=== PATIENT | male | born 1950 | race Hispanic/Latino ===

== ENCOUNTER 2019-12-24 13:41 | Emergency (ER) | payer OTHER, SELFPAY ==
[2019-12-24 13:43] VITALS: BP 149/84; PULSE 75; RESP 20; TEMP 37; O2SAT 99
[2019-12-24 14:03] LABS: Glucose Point of Care 163 (65-105)
--- NOTE | 2019-12-24 14:05 | PC.NURSE ---
blood sugar 163
--- NOTE | 2019-12-24 14:22 | ED.URI ---
HPI - URI/Sore Throat General Chief Complaint: Upper Respiratory Infection Stated Complaint: sore throat History of Present Illness HPI Narrative: Patient states that last week he had chills that he relates to taking a new medication so he stopped his diabetes medication. Patient state that heas not felt well in the past week three days ago he started to have a sore throat. Patient states he had chills and sweating but no fever, nausea , vomiting and or diarrhea over the past week but sore throat remains at this time. Related Data Home Medications Medication Instructions Recorded Confirmed aspirin 81 mg tablet,delayed 81 mg PO DAILY 08/11/19 12/11/19 release coenzyme Q10 300 mg capsule 300 mg PO DAILY 08/11/19 12/11/19 docosahexaenoic acid (dha)-epa 120 1 cap PO DAILY 08/11/19 12/11/19 mg-180 mg capsule lisinopril 10 mg tablet 10 mg PO DAILY 12/31/19 metformin 850 mg tablet 850 mg PO DAILY 12/31/19 Allergies Allergy/AdvReac Type Severity Reaction Status Date / Time No Known Allergies Allergy Verified 12/31/19 08:57 Review of Systems Review of Systems: Narrative: CONSTITUTIONAL: Denies fever, chills, or sweats. EYES: Denies visual changes, redness, or discharge. ENT: Denies rhinorrhea, congestion, positive sore throat, or otalgia. CARDIOVASCULAR:Denies chest pain, palpitations, or edema. RESPIRATORY: Denies cough or dyspnea. GASTROINTESTINAL: Denies abdominal pain, nausea, vomiting, or diarrhea. GENITOURINARY: Denies dysuria or hematuria. SKIN:[Denies rash or itching. MUSCULOSKELETAL:Denies back pain, joint pain, or myalgia. NEUROLOGIC: Denies headache, numbness, or weakness. 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 Please see nursing chart for further information. There is no relevant family history pertinent to the presenting complaint. Exam Narrative: Exam Narrative: GENERAL:Well-appearing, well-nourished, and in no acute distress. HEAD:Normocephalic, atraumatic. EYES: PERRLA and EOMI. ENT: Nares clear, no rhinorrhea or epistaxis. Mucous membranes moist. Pharyngeal erythema copious secretions in the throat NECK: Supple. CHEST: Clear to auscultation. No respiratory distress. HEART: Regular rate and rhythm. No murmur heard. Normal peripheral pulses. ABDOMEN: Soft, nontender, nondistended, normal active bowel sounds. EXTREMITIES: Normal range of motion. No edema. SKIN: Warm, dry, no rash. NEURO: No focal deficits. Alert and oriented x3. Course Vital Signs Vital signs: Vital Signs Temperature 98.6 F 12/24/19 13:43 Pulse Rate 75 12/24/19 13:43 Respiratory Rate 20 12/24/19 13:43 Blood Pressure 149/84 H 12/24/19 13:43 Pulse Oximetry 99 12/24/19 13:43 Temperature 98.6 F 12/24/19 13:43 Pulse Rate 75 12/24/19 13:43 Respiratory Rate 20 12/24/19 13:43 Blood Pressure 149/84 H 12/24/19 13:43 Pulse Oximetry 99 12/24/19 13:43 MDM - URI/Sore Throat Differential Diagnosis Differential diagnosis: Likely upper respiratory infection, otitis media, sinusitis, viral infection, bronchitis, pharyngitis and other Lab Data Labs: Lab Results 12/24/19 Range/Units 14:01 POC Capillary Glucose 163 H (65-105) mg/dl Strep Screen Presumptive Negative *(Reference Range: Negative)* Discharge Plan Discharge Clinical Impression: Pharyngitis Patient Disposition: Home, Self-Care Condition: Stable Instruction
== END 2019-12-24 14:29 | disposition home or self-care (01) ==
PROVIDERS: Emergency Provider Nurse Practitioner Family; PCP Family Medicine
DX: J02.9 Acute pharyngitis, unspecified (principal); Z95.5 Presence of coronary angioplasty implant and graft; E78.00 Pure hypercholesterolemia, unspecified; I10 Essential (primary) hypertension
CPT/HCPCS: 82948; 87081; 87880; 99213; G0463

== ENCOUNTER → 2019-12-24 14:39 | Outpatient (CLI) | payer OTHER, SELFPAY ==
--- NOTE | ~2019-12-24 | XR_ITS ---
XR chest 2V DATE: 12/24/2019 14:55 INDICATION: Cough TECHNIQUE: PA and lateral views COMPARISON: None FINDINGS: There is an approximately 1.5 cm ill-defined density overlying the lateral right mid to upp er lung field. Focal infiltrate or pulmonary mass lesion or considerations. There is patchy infiltrate in the right mid and to a greater exam right lower lung zone. Questionable focal proximal 1.4 cm opacity in the lateral left midlung; the left lung otherwise appea rs clear.. No pleural effusion or pulmonary vascular congestion or pneumothorax. Status post sternotomy/CABG. Borderline heart size. Mild aortic tortuosity. IMPRESSION: Patchy right mid and lower lung zone infiltrates suggesting pneumonia; focal 1.5 cm area of ill-defined density overlying right mid to upper lung which might represent an area of greater foc al infiltrate versus pulmonary mass density. Focal 1.4 cm focal density suggested overlying the lateral left midlung. Follow-up chest radiographs are recommended to ensure complete clearing. Reviewed, dictated and finalized at location A. IMPRESSION: Patchy right mid and lower lung zone infiltrates suggesting pneumon ia; focal 1.5 cm area of ill-defined density overlying right mid to upper lung which might represent an area of greater focal infiltrate versus pulmonary mass density. Focal 1.4 cm focal density suggested overlying the lateral left midlung. Follow-up chest radiographs are recommended to ensure complete clearing.
== END ==
PROVIDERS: PCP Family Medicine; Visit Provider Family Medicine
DX: R05 Cough (principal); R91.8 Other nonspecific abnormal finding of lung field
CPT/HCPCS: 71046

== ENCOUNTER → 2020-07-30 14:47 | Outpatient (CLI) | payer OTHER, SELFPAY ==
--- NOTE | ~2020-07-30 | XR_ITS ---
XR chest 2V DATE: 07/30/2020 14:55 INDICATION: Solitary pulmonary nodule TECHNIQUE: 2 views COMPARISON: 12/24/2019 2 view chest FINDINGS: Status post sternotomy/coronary artery bypass graft surgery. Normal heart size. There is aortic mild tortuosity. No hilar or mediastinal enlargement. There is moderate hyperinflation. No pulmonary infiltrate or consolidation, pulmonary vascular congestion or pleural effusion or pneumotho rax. IMPRESSION: Status post CABG; no active cardiopulmonary disease Reviewed, dictated and finalized at location A. OWCASE CLEANER
== END ==
PROVIDERS: PCP Internal Medicine; Visit Provider Internal Medicine
DX: R91.1 Solitary pulmonary nodule (principal)
CPT/HCPCS: 71046

== ENCOUNTER → 2022-08-28 15:30 | Outpatient (CLI) | payer OTHER, SELFPAY ==
--- NOTE | ~2022-08-28 | XR_ITS ---
Cervical Spine: AP, lateral, open-mouth views Clinical History: Pain, injury Findings: The normal lordotic curve is maintained. The vertebral bodies and posterior elements appea r intact. The intervertebral disc spaces are well maintained. Pre-vertebral soft tissues are unremar kable. Impression: No significant abnormality is seen. Please note that CT imaging is significantly more sensitive for cervical spine trauma, and should be performed for further evaluation if clinically warranted. Reviewed, dictated and finalized at location [] UTILITY OPERATOR Impression: No significant abnormality is seen. Please note that CT imaging is significant ly more sensitive for cervical spine trauma, and should be performed for furthe r evaluation if clinically warranted.
== END ==
PROVIDERS: PCP Clinical Nurse Specialist; Visit Provider Clinical Nurse Specialist
DX: M54.2 Cervicalgia (principal); V89.2XXA Person injured in unspecified motor-vehicle accident, traffic, initial encounter
CPT/HCPCS: 72040

== ENCOUNTER 2025-07-18 11:30 | Emergency (ER) | payer OTHER, SELFPAY ==
[2025-07-18] VITALS (7 sets, daily range): BP systolic 154–162; BP diastolic 79–96; PULSE 66–74; RESP 12–17; TEMP 36.6; O2SAT 96–98
--- OUTSIDE RECORDS SUMMARY | 2025-07-18 13:21 | XMS_ITS | Clinical Summary ---
Author Organization 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 Name Role Phone Unavailable Primary Care Provider Unavailabl e Social History Tobacco Use Types Packs/Day Years Used Date Smoking Tobacco: Never Assessed Sex and Gender Information Value Date Recorded Sex Assigned at Not on file Legal Sex Male 9:42 PM CDT Gender Identity Not on file Sexual Orientation Not on file Plan of Treatment Health Maintenance Due Date Last Done Comments Colorectal Cancer Screening Colonoscopy (10 Years) 1950 Hepatitis C 1968 DTaP, Tdap and Td Vaccines ( 1 - Tdap) 1969 Pneumococcal Vaccine: 50+ Ye ars (1 of 1 - PCV) 2000 Zoster Vaccines (1 of 2) 2000 RSV Immunization or 60+ Years (1 - 1-dose 75+ series) 2025 COVID-19 Vaccine ( - 2024-2 6 season) 2025 Influenza Adult (#1) 2025 Hepatitis A Vaccines Aged Out No long er eligible based on patient's age to complete this topic Meningococcal B Vaccine Aged Out No l onger eligible based on patient's age to complete this topic Meningococcal Vaccine Aged Out No anita tristian eligible based on patient's age to complete this topic RSV Immunizations Under 20 Months Aged Out No longer eligible based on patient's age to complete this topic
[2025-07-18 13:38] LABS: Hematocrit 46.3 % (42.0-52.0); Hemoglobin 15.0 g/dL (14.0-18.0); Immature Granulocyte Percent A 0.3 % (0-0.5); Lymphocytes Absolute Auto 1.11 K/mm3 (0.9-3.2); Mean Corpuscular HGB Conc 32.4 g/dl (32-36); Mean Corpuscular Hemoglobin 28.0 pg (26-34); Mean Corpuscular Volume 86.5 fl (80-100); Nucleated Red Blood Cells Absolute Auto 0.000 K/mm3 (0.0-0.012); Nucleated Red Blood Cells Perc 0.0 % (0.0-0.2); Platelet Count Result 258 k/mm3 (150-375); Red Blood Count 5.35 M/mm3 (4.6-6.20); White Blood Count 7.9 K/mm3 (4.5-10.0)
[2025-07-18 13:51] LABS: Alanine Aminotransferase 12 U/L (6-50); Albumin Level 4.5 g/dL (3.5-5.1); Alkaline Phosphatase 103 U/L (38-126); Anion Gap 9 mmol/L (4-12); Aspartate Amino Transferase 27 U/L (17-59); Bilirubin,Total 0.5 mg/dL (0.2-1.3); Blood Urea Nitrogen 23 mg/dL (9-20); Calcium 9.2 mg/dL (8.4-10.2); Carbon Dioxide 26 mmol/L (22-30); Chloride 104 mmol/L (98-107); Estimated CRCL calculation 70 ml/min; Estimated Glomerular Filt Rate > 60; Glucose 135 mg/dL (65-110); Potassium 4.4 mmol/L (3.4-5.0); Sodium 139 mmol/L (137-145); Total Protein 7.8 g/dL (6.3-8.2)
[2025-07-18] MEDS: MECLIZINE HCL 25 MG TABLET PO (13:53)
[2025-07-18] MEDS: SODIUM CHLORIDE 0.9% IV 1,000 ML 999 ML IV CONT (13:54)
[2025-07-18] MEDS: KETOROLAC 15 MG/ML VIAL (*BKC) IV PUSH (13:54)
--- NOTE | 2025-07-18 16:20 | ED.GENADULT ---
HPI - General Adult General Chief complaint: Dizziness Stated complaint: dizziness since yesterday, GARCÍA & vomiting Time Seen by Provider: 07/18/25 13:03 History of Present Illness HPI narrative: Patient is a 75-year-old male who presents ER with dizziness. Ongoing for couple a days. Worse when he is walking. Associated with mild nausea. Has decreased hearing in his left ear. No extremity weakness or numbness. No slurred speech. Related Data Home Medications ?Medication ?Instructions ?Recorded ?Confirmed ?Last Taken ?Type aspirin 81 mg tablet,delayed 81 mg PO DAILY 08/11/19 11/24/24 Unknown History release (Adult Low Dose Aspirin) coenzyme Q10 300 mg capsule (Co 300 mg PO DAILY 08/11/19 11/24/24 Unknown History Q-10) docosahexaenoic acid (dha)-epa 120 1 cap PO DAILY 08/11/19 11/24/24 Unknown History mg-180 mg capsule (Fish Oil) Allergies Allergy/AdvReac Type Severity Reaction Status Date / Time No Known Allergies Allergy Verified 07/18/25 11:56 Review of Systems Review of Systems: All systems reviewed & are unremarkable except as noted in HPI and below Constitutional: Constitutional: Reports no additional constitutional complaints Cardiovascular: Cardiovascular: Reports no additional cardiovascular complaints Respiratory: Respiratory: Reports no additional respiratory complaints Gastrointestinal: Gastrointestinal: Reports no additional gastrointestinal complaints Musculoskeletal: Musculoskeletal: Reports no additional musculoskeletal complaints [facility] Past Medical History Medical History Skin cancer right side of nose Ventricular bigeminy Long-term current use of testosterone replacement therapy CAD (coronary artery disease) Mixed hyperlipidemia HTN (hypertension) Diabetes mellitus Surgical History Surgical History S/P triple vessel bypass 1988 Family History Family History Mother Patient's mother is in good health Father Acute myocardial infarction, Onset Age: 76 Sibling Diabetes mellitus Mixed hyperlipidemia Social History Social History Smoking status: Never smoker Second hand tobacco smoke exposure: No Alcohol intake: never Substance use: never Do You Feel Safe in your Home?: Yes Lack of Transportation: No Lack of Food: Never True Current Housing: I Have Housing Concerned About Future Housing: No Difficulty Paying Gas/Electric Bills: No Difficulty Paying for Meds: No Currently Unemployed: No Education: Associate Degree Difficulty w/ Childcare or Family Care: No Living arrangements: alone Occupation/Education: occupation 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 HEAD: Normocephalic, atraumatic. EYES: PERRL and EOMI. ENT: Mucous membranes moist. CHEST: Clear to auscultation. No respiratory distress. HEART: Regular rate and rhythm. Normal peripheral pulses. EXTREMITIES: Normal range of motion. No edema. SKIN: Warm, dry, no rash. NEURO: Alert and oriented x3. PSYCH: Normal mood and affect. Course Course Emergency Course: Patient feels much better after meclizine and fluids. Informed of lab results. Discharge home with supportive care. Vital Signs Vital signs: Vital Signs Temperature 97.9 F 07/18/25 11:52 Pulse Rate 74 07/18/25 11:52 Respiratory Rate 12 07/18/25 11:52 Blood Pressure 160/85 H 07/18/25 11:52 Pulse Oximetry 96 07/18/25 11:52 Oxygen Delivery Room Air 07/18/25 11:52 Temperature 97.9 F 07/18/25 11:52 Pulse Rate 66 07/18/25 16:01 Respiratory Rate 16 07/18/25 16:01 Blood Pressure 155/79 H 07/18/25 16:01 Pulse Oximetry 98 07/18/25 16:01 Oxygen Delivery Room Air 07/18/25 11:52 Medical Decision Making Differential Diagnosis Differential Diagnosis: Vertigo, CVA, Meniere's disease Vital Signs Vital Signs: Vital Signs Temperature 97.9 F 07/18/25 11:52 Pulse Rate 74 07/18/25 11:52 Respiratory Rate 12 07/18/25 11:52 Blood Pressure 160/85 H 07/18/25 11:52 Pulse Oximetry 96 07/18/25 11:52 Oxygen Delivery Room Air 07/18/25 11:52 Temperature 97.9 F 07/18/25 11:52 Pulse Rate 66 07/18/25 16:01 Respiratory Rate 16 07/18/25 16:01 Blood Pressure 155/79 H 07/18/25 16:01 Pulse Oximetry 98 07/18/25 16:01 Oxygen Delivery Room Air 07/18/25 11:52 Lab Data Lab results reviewed: Yes I reviewed the patient's lab results. 07/18/25 13:33 07/18/25 13:33 Labs: Lab Results 07/18/25 Range/Units 13:33 WBC 7.9 (4.5-10.0) K/mm3 RBC 5.35 (4.6-6.20) M/mm3 Hgb 15.0 (14.0-18.0) g/dL Hct 46.3 (42.0-52.0) % MCV 86.5 (80-100) fl MCH 28.0 (26-34) pg MCHC 32.4 (32-36) g/dl RDW 14.6 H (11.5-14.5) % Plt Count 258 (150-375) k/mm3 MPV 9.4 (7.4-10.4) fl Immature Gran % (Auto) 0.3 (0-0.5) % Neut % (Auto) 78.0 H (45.5-73.1) % Lymph % (Auto) 14.1 L (18.3-44.2) % Hopkins % (Auto) 6.3 (2.6-8.5) % Eos % (Auto) 1.0 (0-4.4) % Baso % (Auto) 0.3 (0.2-1.2) % Lymph # (Auto) 1.11 (0.9-3.2) K/mm3 Hopkins # (Auto) 0.5 (0.1-0.6) K/mm3 Eos # (Auto) 0.1 (0-0.3) K/mm3 Baso # (Auto) 0.0 (0.0-0.1) K/mm3 Abs Immat Gran (auto) 0.02 (0.00-0.031) K/mm3 Absolute Neuts (auto) 6.2 (1.3-6.7) K/mm3 Absolute Nucleated RBC 0.000 (0.0-0.012) K/mm3 Nucleated RBC % 0.0 (0.0-0.2) % Sodium 139 (137-145) mmol/L Potassium 4.4 (3.4-5.0) mmol/L Chloride 104 (98-107) mmol/L Carbon Dioxide 26 (22-30) mmol/L Anion Gap 9 (4-12) mmol/L BUN 23 H (9-20) mg/dL Creatinine 0.88 (0.7-1.3) mg/dL Estim Creat Clear Calc 70 ml/min Estimated GFR > 60 (59 - ) Glucose 135 H (65-110) mg/dL Calcium 9.2 (8.4-10.2) mg/dL Total Bilirubin 0.5 (0.2-1.3) mg/dL AST 27 (17-59) U/L ALT 12 (6-50) U/L Alkaline Phosphatase 103 (38-126) U/L Total Protein 7.8 (6.3-8.2) g/dL Albumin 4.5 (3.5-5.1) g/dL Discharge Plan Discharge Clinical Impression: Vertigo Patient Disposition: Home Condition: Stable Instructions: Vertigo (ED) Additional Instructions: Return to the ER if you have new weakness, you cannot keep down food/water, or you have other concerns. Patient Language: Chinese Prescriptions: New meclizine 25 mg tablet 25 mg PO BID-TID PRN (Reason: dizziness) Qty: 14 0RF No Action aspirin [Adult Low Dose Aspirin] 81 mg tablet,delayed release (DR/EC) 81 mg PO DAILY Co Q-10 300 mg capsule 300 mg PO DAILY Fish Oil 120-180 mg capsule 1 cap PO DAILY ezetimibe [Zetia] 10 mg tablet 10 mg PO DAILY Qty: 90 3RF metformin 500 mg tablet See Rx Instructions .ROUTE .COMPLEX Qty: 90 1RF Dose Instruction: TAKE 1 TABLET BY MOUTH EVERY DAY Rx Instructions: TAKE 1 TABLET BY MOUTH EVERY DAY Jardiance 10 mg tablet 10 mg PO DAILY Qty: 90 1RF rosuvastatin 40 mg tablet See Rx Instructions .ROUTE .COMPLEX Qty: 90 1RF Dose Instruction: TAKE 40 MG ORALLY DAILY Rx Instructions: TAKE 40 MG ORALLY DAILY lisinopril 20 mg tablet See Rx Instructions .ROUTE .COMPLEX Qty: 90 1RF Dose Instruction: TAKE 1 TABLET BY MOUTH EVERY DAY Rx Instructions: TAKE 1 TABLET BY MOUTH EVERY DAY Follow-up/Referrals: Blair Glasgow, [Primary Care Provider, Internal Medicine] - 1 Week
== END 2025-07-18 16:39 | disposition home or self-care (01) ==
PROVIDERS: Emergency Provider Emergency Medicine; PCP Internal Medicine
DX: R42 Dizziness and giddiness (principal); I25.10 Atherosclerotic heart disease of native coronary artery without angina pectoris; I10 Essential (primary) hypertension; E11.9 Type 2 diabetes mellitus without complications; E78.2 Mixed hyperlipidemia; Z85.828 Personal history of other malignant neoplasm of skin; Z95.1 Presence of aortocoronary bypass graft; Z79.82 Long term (current) use of aspirin; Z79.84 Long term (current) use of oral hypoglycemic drugs; Z79.899 Other long term (current) drug therapy
CPT/HCPCS: 36415; 80053; 85025; 96361; 96374; 99284; A9270; J1885; J7030